=== PATIENT | male | born 1995 | race Caucasian/White ===

== ENCOUNTER 2023-07-30 12:25 | Outpatient (CLI) | payer OTHER ==
--- NOTE | 2023-07-30 14:56 | MRI Report ---
PROCEDURE: Knee LT WO INDICATIONS: L KNEE PAIN TECHNIQUE: Noncontrast sagittal PD fast spin echo and T2 fast spin echo with fat saturation, sagittal 3-D gradie nt sequence with fat saturation; coronal T1 spin echo and PD fast spin echo with fat saturation, and axial PD fast spin echo with fat saturation through the knee. COMPARISON: None. FINDINGS: Image quality: Excellent. Menisci: Mild ill-defined T2 signal elevation at the posterior meniscocapsular junction of the mangle feeder ior horn medial meniscus. The medial and lateral menisci demonstrate otherwise normal morphology and internal signal. The meniscal root ligaments appear intact. Cruciate ligaments: The anterior and posterior cruciate ligaments appear intact. Medial structures: The medial collateral ligament appears intact. Mild ill-defined T2 signal elevat ion adjacent to the medial collateral ligament. Visualized portions of the pes anserinus tendons appe ar normal. No abnormal bursal fluid. Lateral structures: The lateral collateral ligament, long and short heads of the biceps femoris tend on appear intact. The popliteus tendon appears normal. Iliotibial band appears normal. Anterior structures: The quadriceps and patellar tendons appear intact. Lateral patellar subluxation . Lateral ventral trochlear prominence. Moderate edema in the infrapatellar fat pad. Bones and cartilage: Mildly impacted fractures of the medial patella and the anterolateral nonweightb earing aspect of the lateral femoral condyle with underlying contusion. The cartilage of the medial a nd lateral femorotibial compartments, as well as the patellofemoral compartment, appears normal in th ickness. Joint space: There is physiologic knee joint fluid. No Victoria's cyst. Normal appearing synovial pli are incidentally noted. IMPRESSION: 1. Sequelae of recent lateral patellar dislocation with impaction fractures involving the medial sepulveda lla and lateral femoral condyle as above. 2. Meniscocapsular junction injury involving the medial meniscus. 3. Medial collateral ligament strain. Reviewed by: Kami Soto MD on 07/30/2023 2:54 PM PDT Approved by: Kami Soto MD on 07/30/2023 2:54 PM PDT Station ID: [id number]
== END 2023-07-30 12:26 | disposition home or self-care (01) ==
LOC: DI 12:25
PROVIDERS: ATTEND Nurse Practitioner Family
DX: S83.412A Sprain of medial collateral ligament of left knee, initial encounter (principal); S89.82XA Other specified injuries of left lower leg, initial encounter; S80.02XA Contusion of left knee, initial encounter; S82.002A Unspecified fracture of left patella, initial encounter for closed fracture; S72.422A Displaced fracture of lateral condyle of left femur, initial encounter for closed fracture